=== PATIENT | male | born 1945 | race Caucasian/White ===

== ENCOUNTER 2016-12-31 17:15 | Inpatient (IN) | payer MEDICARE, OTHER ==
[~2016-12-31 17:15] MED LIST: ACETAMINOPHEN325 M2 PO; ALBUTEROL SULF8.5 GM IH; ALENDRONATE SOD70 M1 PO; ALLERGY12.5 MG/5 PO; ALLFEN400 MG PO; ALOE VESTA56 G1 TOP; ALPRAZOLAM0.5 M2 PO; AMBIEN10 MG PO; AMMONIUM LACTA140 GM TOP; AMOXICILLIN500 M1 PO; ANTI-ITCH28 GM TOP; ANUSOL PR; ASCORBIC ACID500 M2 PO; ASCORBIC ACID500 M3 PO; ASPIRIN325 M3 PO; ASPIRIN325 MG PO; ATENOLOL50 MG PO; AUGMENTIN875 MG PO; AVELOX400 MG PO; B-12500 MC1 PO; BACLOFEN10 M1 PO; BACLOFEN10 MG PO; BACTRIM DS TAB1 EAC2 PO; BENADRYL25 MG PO; BENADRYL25 MG/TA1 NG; BETADINE1 EACH TP; CALCIUM 500 +1 EA10 PO; CALCIUM 500 +1 EA11 PO; CALCIUM 500 +1 EAC5 PO; CALCIUM 500 WI1 EAC1 PO; CARBAMAZEPINE200 M5 PO; CARBAMAZEPINE200 MG PO; CARDURA8 M1 PO; CARDURA8 MG PO; CELEXA40 MG PO; CITALOPRAM HBR40 MG PO; CLOTRIM ANTIFUN15 GM TOP; CLOTRIMAZOLE15 G2 TOP; COMBIVENT INH14.7 GM IH; CORTISONE28 GM; DANTROLENE SODI PO; DIAZEPAM2 M2 PO; DOLOPHINE HCL10 MG PO; DOXAZOSIN MESYLA8 M1 PO; FERROUS SU325 ( 65 ) PO; FERROUS SULFAT325 MG PO; FINASTERIDE5 M2 PO; FINASTERIDE5 MG PO; FISH OIL 1,0001 CA PO; FISH OIL 11000 MG/CA PO; FLAGYL500 M1 PO; FOSAMAX70 MG PO; FUROSEMIDE40 MG PO; FUROSEMIDE80 M1 PO; FUROSEMIDE80 M2 PO; FUROSEMIDE80 MG PO; GABAPENTIN300 MG PO; GABAPENTIN400 M3 PO; GABAPENTIN400 MG PO; GUAIFENESIN400 MG PO; HEMORRHOIDAL RC; HYDROCHLOROTHIA25 M1 PO; HYDROCHLOROTHIA25 MG PO; HYDROCORTISON28.4 G6 TP; HYDROCORTISONE10 M1 PO; HYDROCORTISONE10 M3 PO; HYDROXYCHLOROQ200 MG PO; HYDROXYZINE HCL25 MG PO; IBUPROFEN800 M1 PO; IBUPROFEN800 MG PO; IMODIUM2 MG PO; INDERAL LA120 MG PO; IRON325 ( 65 ) PO; K-DUR10 ME1 PO; LAMISIL250 M1 PO; LASIX40 MG PO; LASIX80 M1 PO; LATANOPROST2.5 ML OP; LEVAQUIN500 MG PO; LISINOPRIL20 MG PO; LISINOPRIL40 M1 PO; LISINOPRIL40 MG PO; LOPRESSOR50 M1 PO; LORCET 10/650 T1 TAB PO; LOTRIMIN AF12 GM TP; MELOXICAM15 M1 PO; METHADONE HCL10 M1 PO; METHADONE HCL10 MG PO; METHADONE HCL5 M2 PO; METHADONE5 MG PO; METOPROLOL TAR100 M2 PO; METOPROLOL TART25 MG PO; METRONIDAZOLE500 MG PO; MILK OF MAGNESIA PO; MIRALAX17 G1 PO; MIRALAX17 GM PO; MISOPROSTOL200 MCG PO; MOMETASONE FURO30 ML; MOMETASONE FURO30 ML TP; MULTIVITAMIN1 TAB PO; MUPIROCIN15 G2 TP; NASONEX17 G1; NASONEX17 GM NS; NATURAL E PO; NEURONTIN300 M1 PO; NEURONTIN400 M1 PO; NORTRIPTYLINE H25 M1 PO; NORTRIPTYLINE H50 M1 PO; NYSTATIN15 GM TP; OCUVITE TABLET1 TAB PO; OMEGA 31 CAP PO; OMEPRAZOLE20 M2 PO; OMEPRAZOLE20 M4 PO; OMEPRAZOLE20 MG PO; OXYCODONE HCL5 M1 PO; OXYGEN; OYST CAL D TABL PO; PENICILLIN V P500 MG PO; PENTOPAK400 MG PO; PERCOCET 5/3251 TAB PO; PEROXIDE SORE236 ML PO; POLYETHYLENE G500 G2 PO; POLYETHYLENE GL17 G1 PO; POTASSIUM CHLO10 MEQ PO; POTASSIUM CHLO20 ME3 PO; PRAVACHOL40 MG PO; PRAVASTATIN SOD80 M1 PO; PREDNISONE10 M1 PO; PREDNISONE5 MG PO; PRESERVISION A1 EAC4 PO; PRINIVIL20 MG PO; PROAIR HFA8.5 GM INH; PROPRANOLOL HC120 MG PO; REFRESH LIQUIGE15 ML EACH EYE; REFRESH LIQUIGE30 ML EACH EYE; REFRESH PLUS1 EACH OP; REQUIP3 M1 PO; ROPINIROLE HCL2 MG PO; ROPINIROLE HCL3 M1 PO; SALSALATE500 MG PO; SANTYL30 G1 TP; SANTYL30 GM TP; SENNA8.6 M1 PO; SILDENAFIL20 MG PO; SILVER SULFADIA50 GM TP; SIMETHICONE80 MG PO; SIMVASTATIN80 MG PO; SPIRIVA18 MCG IH; STERAPRED10 MG/DOSE PO; SYMBICORT 160-1 PUFF INH; TEGRETOL100 MG PO; TRAMADOL HCL50 M2 PO; TRAVATAN 0.0042.5 ML OP; TRAVATAN5 ML OP; TRAZODONE HCL50 M1 PO; TRAZODONE50 MG PO; TRIAMTERENE-HCT1 CAP PO; TRIPLE ANTIBIOT15 GM TP; TYLENOL EXTRA500 M1 PO; TYLENOL325 M2 PO; TYLENOL325 MG PO; VALIUM2 MG PO; VENTOLIN HFA18 G1 INH; VITAMIN B-12500 MCG PO; VITAMIN C PO; VITAMIN C500 MG PO; VITAMIN E1000 UNI1 PO; VITAMIN E1000 UNI2 PO; XALATAN2.5 M1 EACH EYE; XALATAN2.5 ML OP; ZYRTEC10 MG PO; [UNRECOGNIZED DRUG - OTHER] PO; [UNRECOGNIZED DRUG - REMARK]
[2016-12-31] MEDS ORDERED: IODOSORB TP (17:34)
[2016-12-31] MEDS ORDERED: FERROUS SULFAT324 MG PO (17:37)
[2016-12-31] MEDS ORDERED: LASIX80 M1 PO (17:37)
[2016-12-31] MEDS ORDERED: HYDROCODON-ACE1 EA17 PO (17:39)
[2016-12-31] MEDS ORDERED: CORTIZONE-1028 G2 TP (17:40)
[2016-12-31] MEDS ORDERED: IBUPROFEN800 M1 PO (17:41)
[2016-12-31] MEDS ORDERED: NASONEX17 G1 (17:42)
[2016-12-31] MEDS ORDERED: PAMELOR50 M2 PO (17:43)
[2016-12-31] MEDS ORDERED: XALATAN2.5 M1 OP (17:46)
[2016-12-31 17:53] LABS: URINE BILIRUBIN NEGATIVE (NEG); URINE BLOOD MODERATE (NEG); URINE GLUCOSE (UA) NEGATIVE (NEG); URINE KETONE NEGATIVE (NEG); URINE LEUKOCYTE ESTERASE NEGATIVE (NEG); URINE NITRITE NEGATIVE (NEG); URINE PROTEIN MODERATE (NEG)
[2016-12-31 17:57] LABS: URINE APPEARANCE CLEAR; URINE COLOR YELLOW
[2016-12-31 18:02] LABS: URINE EPITHELIAL CELLS RARE /[HPF] (0-10); URINE MUCUS 1+; URINE WBC RARE /[HPF] (0-5)
[2016-12-31 18:19] LABS: BASO % 0.1 % (0-2); EOS % 0.1 % (0-7); HCT-HEMATOCRIT 31.8 % (36.0-53.5); HGB-HEMOGLOBIN 10.9 gm/dl (13.5-17.0); IMMATURE GRANULOCYTES ABSOLUTE 0.04 tho/cmm (0-0.03); IMMATURE GRANULOCYTES PERCENT 0.3 % (0-0.3); LYMPH % 10.7 % (20-45); LYMPH ABSOLUTE COUNT 1.3 tho/cmm (0.8-4.5); MCH (MEAN CORPUSCULAR HGB) 33.3 pg (28.0-32.0); MCHC MEAN CORPUSCULAR HGB CONC 34.3 % (32.0-36.0); MCV (MEAN CELL VOLUME) 97.2 fl (82.0-96.0); MEAN PLATELET VOLUME 10.3 cmc (9.4-12.4); MONO % 14.1 % (0-12); MONOCYTE ABSOLUTE COUNT 1.8 tho/cmm (0.0-1.2); NEUTROPHIL ABSOLUTE COUNT 9.2 tho/cmm (1.6-8.0); NEUTROPHIL-AUTOMATED 9.2 tho/cmm (1.6-8.0); NEUTROPHILS % 74.7 % (40-80); PLATELET COUNT 126 tho/cmm (150-450); RED BLOOD COUNT 3.27 mil/cmm (4.40-5.70); RED CELL DISTRIBUTION WIDTH 15.3 % (12.4-16.4); WHITE BLOOD COUNT 12.4 tho/cmm (4.0-10.0)
[2016-12-31 18:31] LABS: ALB/GLOB RATIO 0.6 (0.8-2.0); ALBUMIN 3.2 g/dl (3.5-5.0); ALKALINE PHOSPHATASE 90 U/L (33-138); ALT/SGPT 25 U/L (12-78); ANION GAP 15 mmol/L (0-20); AST/SGOT 47 U/L (10-40); BILIRUBIN,TOTAL 0.8 mg/dl (0.0-1.5); BLOOD UREA NITROGEN 46 mg/dl (6-24); CALCIUM 9.4 mg/dl (8.5-10.5); CARBON DIOXIDE-VENOUS 27 mmol/L (22-32); CHLORIDE 95 mmol/l (96-110); CREATININE 1.58 mg/dl (0.60-1.30); GLUCOSE 92 mg/dL (70-110); LIPASE 89 U/L (73-393); SODIUM 133 mmol/L (135-145); eGFR VALUE FOR BLACK 50 mL/Min
[2016-12-31 21:13] LABS: PROCALCITONIN 0.99 ng/ml (0.05-0.09)
[2017-01-01 03:39] LABS: HGB-HEMOGLOBIN 10.2 gm/dl (13.5-17.0); IMMATURE GRANULOCYTES ABSOLUTE 0.02 tho/cmm (0-0.03); IMMATURE GRANULOCYTES PERCENT 0.2 % (0-0.3); LYMPH % 4.5 % (20-45); LYMPH ABSOLUTE COUNT 0.4 tho/cmm (0.8-4.5); MCH (MEAN CORPUSCULAR HGB) 32.7 pg (28.0-32.0); MCV (MEAN CELL VOLUME) 96.2 fl (82.0-96.0); MONO % 5.6 % (0-12); MONOCYTE ABSOLUTE COUNT 0.5 tho/cmm (0.0-1.2); NEUTROPHIL ABSOLUTE COUNT 7.9 tho/cmm (1.6-8.0); NEUTROPHIL-AUTOMATED 7.9 tho/cmm (1.6-8.0); NEUTROPHILS % 89.7 % (40-80); PLATELET COUNT 120 tho/cmm (150-450); RED BLOOD COUNT 3.12 mil/cmm (4.40-5.70); WHITE BLOOD COUNT 8.8 tho/cmm (4.0-10.0)
[2017-01-01 03:46] LABS: ALB/GLOB RATIO 0.5 (0.8-2.0); ALBUMIN 2.7 g/dl (3.5-5.0); ALKALINE PHOSPHATASE 85 U/L (33-138); ALT/SGPT 24 U/L (12-78); ANION GAP 17 mmol/L (0-20); AST/SGOT 54 U/L (10-40); BILIRUBIN,TOTAL 0.7 mg/dl (0.0-1.5); BLOOD UREA NITROGEN 36 mg/dl (6-24); CALCIUM 8.4 mg/dl (8.5-10.5); CARBON DIOXIDE-VENOUS 24 mmol/L (22-32); CHLORIDE 97 mmol/l (96-110); CREATININE 1.32 mg/dl (0.60-1.30); POTASSIUM 3.6 mmol/L (3.7-5.1); SODIUM 134 mmol/L (135-145); eGFR VALUE FOR BLACK 62 mL/Min
[2017-01-01 03:51] LABS: GLUCOSE 158 mg/dL (70-110)
[2017-01-01 18:00] LABS: URINE BILIRUBIN NEGATIVE (NEG); URINE BLOOD NEGATIVE (NEG); URINE GLUCOSE (UA) NEGATIVE (NEG); URINE KETONE NEGATIVE (NEG); URINE LEUKOCYTE ESTERASE NEGATIVE (NEG); URINE NITRITE NEGATIVE (NEG); URINE PROTEIN MODERATE (NEG); URINE SPECIFIC GRAVITY 1.015 (1.003-1.030)
[2017-01-01 18:03] LABS: URINE APPEARANCE CLOUDY; URINE COLOR YELLOW
[2017-01-01 18:28] LABS: URINE EPITHELIAL CELLS RARE /[HPF] (0-10); URINE RBC 0 /[HPF] (0-5); URINE WBC 0 /[HPF] (0-5)
[2017-01-01 18:29] LABS: URINE AMORPHOUS 4+
[2017-01-02 05:32] LABS: BASO % 0.1 % (0-2); EOS % 0.1 % (0-7); HCT-HEMATOCRIT 26.6 % (36.0-53.5); IMMATURE GRANULOCYTES ABSOLUTE 0.03 tho/cmm (0-0.03); IMMATURE GRANULOCYTES PERCENT 0.3 % (0-0.3); LYMPH % 13.7 % (20-45); LYMPH ABSOLUTE COUNT 1.2 tho/cmm (0.8-4.5); MCH (MEAN CORPUSCULAR HGB) 32.7 pg (28.0-32.0); MCHC MEAN CORPUSCULAR HGB CONC 33.8 % (32.0-36.0); MCV (MEAN CELL VOLUME) 96.7 fl (82.0-96.0); MEAN PLATELET VOLUME 9.9 cmc (9.4-12.4); MONO % 13.3 % (0-12); MONOCYTE ABSOLUTE COUNT 1.2 tho/cmm (0.0-1.2); NEUTROPHIL ABSOLUTE COUNT 6.4 tho/cmm (1.6-8.0); NEUTROPHIL-AUTOMATED 6.4 tho/cmm (1.6-8.0); NEUTROPHILS % 72.5 % (40-80); PLATELET COUNT 129 tho/cmm (150-450); RED BLOOD COUNT 2.75 mil/cmm (4.40-5.70); RED CELL DISTRIBUTION WIDTH 14.7 % (12.4-16.4); WHITE BLOOD COUNT 8.9 tho/cmm (4.0-10.0)
[2017-01-02 05:42] LABS: ANION GAP 12 mmol/L (0-20); BLOOD UREA NITROGEN 30 mg/dl (6-24); CALCIUM 7.5 mg/dl (8.5-10.5); CARBON DIOXIDE-VENOUS 28 mmol/L (22-32); CHLORIDE 95 mmol/l (96-110); GLUCOSE 112 mg/dL (70-110); POTASSIUM 3.2 mmol/L (3.7-5.1); SODIUM 132 mmol/L (135-145); eGFR VALUE FOR BLACK 69 mL/Min
[2017-01-03 19:10] LABS: ABG CO2 ARTERIAL 30 mmol/L (21-27); ARTERIAL BLD GAS O2 SATURATION 88 % (95-98); ARTERIAL BLOOD GAS PCO2 46 mmHg (32-45); ARTERIAL PO2 57 mmHg (70-100); BICARBONATE 29 mmol/L (21-28); BLOOD GAS BASE EXCESS 4 mM/L (-/+3); PH 7.41 Units (7.35-7.45)
[2017-01-03 23:46] LABS: BLOOD UREA NITROGEN 22 mg/dl (6-24); CALCIUM 7.2 mg/dl (8.5-10.5); CARBON DIOXIDE-VENOUS 31 mmol/L (22-32); CHLORIDE 93 mmol/l (96-110); CREATININE 1.17 mg/dl (0.60-1.30); GLUCOSE 126 mg/dL (70-110); SODIUM 132 mmol/L (135-145); eGFR VALUE FOR BLACK 71 mL/Min
[2017-01-03 23:48] LABS: ANION GAP 11 mmol/L (0-20)
[2017-01-04 04:59] LABS: BASO % 0.2 % (0-2); EOS % 1.3 % (0-7); EOSINOPHIL ABSOLUTE COUNT 0.1 tho/cmm (0.0-0.7); HCT-HEMATOCRIT 28.7 % (36.0-53.5); HGB-HEMOGLOBIN 9.5 gm/dl (13.5-17.0); IMMATURE GRANULOCYTES ABSOLUTE 0.03 tho/cmm (0-0.03); IMMATURE GRANULOCYTES PERCENT 0.5 % (0-0.3); LYMPH % 12.3 % (20-45); LYMPH ABSOLUTE COUNT 0.7 tho/cmm (0.8-4.5); MCHC MEAN CORPUSCULAR HGB CONC 33.1 % (32.0-36.0); MCV (MEAN CELL VOLUME) 96.6 fl (82.0-96.0); MEAN PLATELET VOLUME 9.4 cmc (9.4-12.4); MONOCYTE ABSOLUTE COUNT 1.2 tho/cmm (0.0-1.2); NEUTROPHILS % 65.7 % (40-80); PLATELET COUNT 126 tho/cmm (150-450); RED BLOOD COUNT 2.97 mil/cmm (4.40-5.70); RED CELL DISTRIBUTION WIDTH 14.6 % (12.4-16.4)
[2017-01-04 05:20] LABS: ALB/GLOB RATIO 0.4 (0.8-2.0); ALBUMIN 2.2 g/dl (3.5-5.0); ALKALINE PHOSPHATASE 70 U/L (33-138); ALT/SGPT 19 U/L (12-78); ANION GAP 16 mmol/L (0-20); AST/SGOT 37 U/L (10-40); BILIRUBIN,TOTAL 0.7 mg/dl (0.0-1.5); BLOOD UREA NITROGEN 19 mg/dl (6-24); CALCIUM 6.8 mg/dl (8.5-10.5); CARBON DIOXIDE-VENOUS 28 mmol/L (22-32); CHLORIDE 89 mmol/l (96-110); CREATININE 1.04 mg/dl (0.60-1.30); GLUCOSE 171 mg/dL (70-110); POTASSIUM 3.2 mmol/L (3.7-5.1); SODIUM 130 mmol/L (135-145); eGFR VALUE FOR BLACK 82 mL/Min
[2017-01-05 03:52] LABS: BASO % 0.2 % (0-2); EOS % 1.3 % (0-7); EOSINOPHIL ABSOLUTE COUNT 0.1 tho/cmm (0.0-0.7); HCT-HEMATOCRIT 27.5 % (36.0-53.5); HGB-HEMOGLOBIN 9.1 gm/dl (13.5-17.0); IMMATURE GRANULOCYTES ABSOLUTE 0.05 tho/cmm (0-0.03); IMMATURE GRANULOCYTES PERCENT 0.8 % (0-0.3); LYMPH % 16.4 % (20-45); LYMPH ABSOLUTE COUNT 1.1 tho/cmm (0.8-4.5); MCH (MEAN CORPUSCULAR HGB) 32.4 pg (28.0-32.0); MCHC MEAN CORPUSCULAR HGB CONC 33.1 % (32.0-36.0); MCV (MEAN CELL VOLUME) 97.9 fl (82.0-96.0); MEAN PLATELET VOLUME 9.6 cmc (9.4-12.4); MONO % 17.1 % (0-12); MONOCYTE ABSOLUTE COUNT 1.1 tho/cmm (0.0-1.2); NEUTROPHIL ABSOLUTE COUNT 4.1 tho/cmm (1.6-8.0); NEUTROPHIL-AUTOMATED 4.1 tho/cmm (1.6-8.0); NEUTROPHILS % 64.2 % (40-80); PLATELET COUNT 119 tho/cmm (150-450); RED BLOOD COUNT 2.81 mil/cmm (4.40-5.70); RED CELL DISTRIBUTION WIDTH 14.5 % (12.4-16.4); WHITE BLOOD COUNT 6.4 tho/cmm (4.0-10.0)
[2017-01-05 04:06] LABS: ALB/GLOB RATIO 0.4 (0.8-2.0); ALBUMIN 2.2 g/dl (3.5-5.0); ALKALINE PHOSPHATASE 72 U/L (33-138); ALT/SGPT 22 U/L (12-78); ANION GAP 9 mmol/L (0-20); AST/SGOT 37 U/L (10-40); BILIRUBIN,TOTAL 0.5 mg/dl (0.0-1.5); BLOOD UREA NITROGEN 23 mg/dl (6-24); CALCIUM 7.2 mg/dl (8.5-10.5); CARBON DIOXIDE-VENOUS 32 mmol/L (22-32); CHLORIDE 96 mmol/l (96-110); CREATININE 1.03 mg/dl (0.60-1.30); GLUCOSE 92 mg/dL (70-110); POTASSIUM 3.4 mmol/L (3.7-5.1); SODIUM 134 mmol/L (135-145); eGFR VALUE FOR BLACK 83 mL/Min
[2017-01-05 20:10] LABS: URINE BILIRUBIN NEGATIVE (NEG); URINE BLOOD SMALL (NEG); URINE GLUCOSE (UA) NEGATIVE (NEG); URINE KETONE NEGATIVE (NEG); URINE LEUKOCYTE ESTERASE NEGATIVE (NEG); URINE NITRITE NEGATIVE (NEG); URINE PROTEIN SMALL (NEG); URINE SPECIFIC GRAVITY 1.015 (1.003-1.030)
[2017-01-05 20:16] LABS: URINE APPEARANCE CLEAR; URINE COLOR YELLOW
[2017-01-05 20:18] LABS: URINE AMORPHOUS 1+; URINE EPITHELIAL CELLS 0 /[HPF] (0-10); URINE WBC 0-1 /[HPF] (0-5)
[2017-01-06 04:42] LABS: ANION GAP 12 mmol/L (0-20); BLOOD UREA NITROGEN 23 mg/dl (6-24); CARBON DIOXIDE-VENOUS 30 mmol/L (22-32); CHLORIDE 96 mmol/l (96-110); CREATININE 0.94 mg/dl (0.60-1.30); GLUCOSE 112 mg/dL (70-110); POTASSIUM 3.5 mmol/L (3.7-5.1); SODIUM 134 mmol/L (135-145); eGFR VALUE FOR BLACK >90 mL/Min
[2017-01-08 07:16] LABS: BASO % 0.3 % (0-2); EOS % 1.4 % (0-7); EOSINOPHIL ABSOLUTE COUNT 0.1 tho/cmm (0.0-0.7); HCT-HEMATOCRIT 28.3 % (36.0-53.5); HGB-HEMOGLOBIN 9.4 gm/dl (13.5-17.0); IMMATURE GRANULOCYTES ABSOLUTE 0.08 tho/cmm (0-0.03); IMMATURE GRANULOCYTES PERCENT 1.4 % (0-0.3); LYMPH % 14.4 % (20-45); LYMPH ABSOLUTE COUNT 0.8 tho/cmm (0.8-4.5); MCH (MEAN CORPUSCULAR HGB) 32.2 pg (28.0-32.0); MCHC MEAN CORPUSCULAR HGB CONC 33.2 % (32.0-36.0); MCV (MEAN CELL VOLUME) 96.9 fl (82.0-96.0); MEAN PLATELET VOLUME 9.5 cmc (9.4-12.4); MONO % 12.7 % (0-12); MONOCYTE ABSOLUTE COUNT 0.7 tho/cmm (0.0-1.2); NEUTROPHIL ABSOLUTE COUNT 4.1 tho/cmm (1.6-8.0); NEUTROPHIL-AUTOMATED 4.1 tho/cmm (1.6-8.0); NEUTROPHILS % 69.8 % (40-80); PLATELET COUNT 113 tho/cmm (150-450); RED BLOOD COUNT 2.92 mil/cmm (4.40-5.70); RED CELL DISTRIBUTION WIDTH 14.4 % (12.4-16.4); WHITE BLOOD COUNT 5.8 tho/cmm (4.0-10.0)
[2017-01-08 07:28] LABS: ALBUMIN 2.3 g/dl (3.5-5.0); ANION GAP 11 mmol/L (0-20); BLOOD UREA NITROGEN 20 mg/dl (6-24); C-REACTIVE PROTEIN 14.7 mg/dl (0-0.9); CALCIUM 8.6 mg/dl (8.5-10.5); CARBON DIOXIDE-VENOUS 31 mmol/L (22-32); CHLORIDE 96 mmol/l (96-110); CREATININE 0.87 mg/dl (0.60-1.30); GLUCOSE 94 mg/dL (70-110); POTASSIUM 3.2 mmol/L (3.7-5.1); SODIUM 135 mmol/L (135-145); eGFR VALUE FOR BLACK >90 mL/Min
[2017-01-10 05:21] LABS: BASO % 0.2 % (0-2); EOS % 1.2 % (0-7); EOSINOPHIL ABSOLUTE COUNT 0.1 tho/cmm (0.0-0.7); HCT-HEMATOCRIT 29.5 % (36.0-53.5); HGB-HEMOGLOBIN 9.4 gm/dl (13.5-17.0); IMMATURE GRANULOCYTES ABSOLUTE 0.09 tho/cmm (0-0.03); IMMATURE GRANULOCYTES PERCENT 1.5 % (0-0.3); LYMPH ABSOLUTE COUNT 0.9 tho/cmm (0.8-4.5); MCHC MEAN CORPUSCULAR HGB CONC 31.9 % (32.0-36.0); MCV (MEAN CELL VOLUME) 100.3 fl (82.0-96.0); MEAN PLATELET VOLUME 9.4 cmc (9.4-12.4); MONO % 12.1 % (0-12); MONOCYTE ABSOLUTE COUNT 0.7 tho/cmm (0.0-1.2); NEUTROPHIL ABSOLUTE COUNT 4.1 tho/cmm (1.6-8.0); NEUTROPHIL-AUTOMATED 4.1 tho/cmm (1.6-8.0); PLATELET COUNT 116 tho/cmm (150-450); RED BLOOD COUNT 2.94 mil/cmm (4.40-5.70); RED CELL DISTRIBUTION WIDTH 14.8 % (12.4-16.4); WHITE BLOOD COUNT 5.9 tho/cmm (4.0-10.0)
[2017-01-10 05:50] LABS: ANION GAP 8 mmol/L (0-20); BLOOD UREA NITROGEN 26 mg/dl (6-24); CALCIUM 8.5 mg/dl (8.5-10.5); CARBON DIOXIDE-VENOUS 35 mmol/L (22-32); CHLORIDE 98 mmol/l (96-110); CREATININE 1.09 mg/dl (0.60-1.30); GLUCOSE 102 mg/dL (70-110); SODIUM 137 mmol/L (135-145); eGFR VALUE FOR BLACK 78 mL/Min
[2017-01-13 06:50] LABS: TSH-THYROID STIMULATING HORM. 4.93 uIU/ml (0.40-3.80)
[2017-01-14 03:40] LABS: ALB/GLOB RATIO 0.4 (0.8-2.0); ALBUMIN 2.3 g/dl (3.5-5.0); ALKALINE PHOSPHATASE 99 U/L (33-138); ALT/SGPT 18 U/L (12-78); ANION GAP 12 mmol/L (0-20); AST/SGOT 27 U/L (10-40); BILIRUBIN,TOTAL 0.4 mg/dl (0.0-1.5); BLOOD UREA NITROGEN 20 mg/dl (6-24); C-REACTIVE PROTEIN 8.8 mg/dl (0-0.9); CALCIUM 8.4 mg/dl (8.5-10.5); CARBON DIOXIDE-VENOUS 34 mmol/L (22-32); CHLORIDE 95 mmol/l (96-110); CREATININE 1.06 mg/dl (0.60-1.30); GLUCOSE 99 mg/dL (70-110); POTASSIUM 3.5 mmol/L (3.7-5.1); SODIUM 137 mmol/L (135-145); eGFR VALUE FOR BLACK 80 mL/Min
[2017-01-14 10:16] LABS: BASO % 0.1 % (0-2); EOS % 0.8 % (0-7); EOSINOPHIL ABSOLUTE COUNT 0.1 tho/cmm (0.0-0.7); HGB-HEMOGLOBIN 9.6 gm/dl (13.5-17.0); IMMATURE GRANULOCYTES ABSOLUTE 0.14 tho/cmm (0-0.03); IMMATURE GRANULOCYTES PERCENT 1.8 % (0-0.3); LYMPH % 12.3 % (20-45); MCH (MEAN CORPUSCULAR HGB) 31.9 pg (28.0-32.0); MCV (MEAN CELL VOLUME) 99.7 fl (82.0-96.0); MEAN PLATELET VOLUME 9.3 cmc (9.4-12.4); MONO % 12.7 % (0-12); NEUTROPHIL ABSOLUTE COUNT 5.8 tho/cmm (1.6-8.0); NEUTROPHIL-AUTOMATED 5.8 tho/cmm (1.6-8.0); NEUTROPHILS % 72.3 % (40-80); PLATELET COUNT 121 tho/cmm (150-450); RED BLOOD COUNT 3.01 mil/cmm (4.40-5.70); RED CELL DISTRIBUTION WIDTH 15.2 % (12.4-16.4)
[2017-01-15 05:40] LABS: BASO % 0.2 % (0-2); EOS % 0.9 % (0-7); EOSINOPHIL ABSOLUTE COUNT 0.1 tho/cmm (0.0-0.7); HCT-HEMATOCRIT 30.6 % (36.0-53.5); HGB-HEMOGLOBIN 9.7 gm/dl (13.5-17.0); IMMATURE GRANULOCYTES ABSOLUTE 0.08 tho/cmm (0-0.03); IMMATURE GRANULOCYTES PERCENT 1.4 % (0-0.3); LYMPH % 16.4 % (20-45); MCH (MEAN CORPUSCULAR HGB) 31.6 pg (28.0-32.0); MCHC MEAN CORPUSCULAR HGB CONC 31.7 % (32.0-36.0); MCV (MEAN CELL VOLUME) 99.7 fl (82.0-96.0); MEAN PLATELET VOLUME 9.2 cmc (9.4-12.4); MONOCYTE ABSOLUTE COUNT 0.7 tho/cmm (0.0-1.2); NEUTROPHILS % 69.1 % (40-80); PLATELET COUNT 110 tho/cmm (150-450); RED BLOOD COUNT 3.07 mil/cmm (4.40-5.70); RED CELL DISTRIBUTION WIDTH 15.4 % (12.4-16.4); WHITE BLOOD COUNT 5.8 tho/cmm (4.0-10.0)
[2017-01-23] MEDS ORDERED: AMIODARONE HCL200 M1 PO ×2 (12:09→12:19)
[2017-01-23] MEDS ORDERED: DILTIAZEM 24HR180 M4 PO (12:16)
[2017-01-23] MEDS ORDERED: DANTRIUM PO (12:18)
[2017-01-23] MEDS ORDERED: PRESERVISION A1 EAC5 PO (12:20)
[2017-01-23] MEDS ORDERED: NASONEX17 G1 (12:21)
[2017-01-23] MEDS ORDERED: SYMBICORT 160-1 PUFF INH (12:21)
[2017-01-23] MEDS ORDERED: CARBAMAZEPINE100 M3 PO (12:22)
[2017-01-23] MEDS ORDERED: XARELTO20 M1 PO (12:22)
[2017-01-23] MEDS ORDERED: CARDIZEM CD180 M1 PO (12:23)
[2017-01-23] MEDS ORDERED: NEURONTIN600 M1 PO (12:23)
[2017-01-23] MEDS ORDERED: LAMISIL250 M1 PO (12:23)
[2017-01-23] MEDS ORDERED: ALDACTONE25 M1 PO (12:24)
[2017-01-23] MEDS ORDERED: POTASSIUM CHLO20 ME3 PO (12:24)
[2017-01-23] MEDS ORDERED: VITAMIN E400 UNI4 PO (12:24)
[2017-01-23] MEDS ORDERED: POLYETHYLENE G255 G1 PO (12:24)
[2017-01-23] MEDS ORDERED: VITAMIN C500 M3 PO (12:24)
[2017-01-23] MEDS ORDERED: FEOSOL325 M1 PO (12:25)
[2017-01-23] MEDS ORDERED: LASIX80 M1 PO (12:25)
[2017-01-23] MEDS ORDERED: PROSCAR5 M1 PO (12:25)
[2017-01-23] MEDS ORDERED: REQUIP2 M1 PO (12:37)
[2017-01-23] MEDS ORDERED: LOPRESSOR100 M1 PO (12:37)
[2017-01-23] MEDS ORDERED: OMEPRAZOLE20 M3 PO (12:38)
[2017-01-23] MEDS ORDERED: CORTEF20 M1 PO (12:38)
[2017-01-23] MEDS ORDERED: IBUPROFEN800 M1 PO (12:38)
[2017-01-23] MEDS ORDERED: PRAVACHOL40 M1 PO (12:39)
[2017-01-23] MEDS ORDERED: CARDURA8 M1 PO (12:41)
[2017-01-23] MEDS ORDERED: PAMELOR25 M1 PO (12:41)
[2017-01-23] MEDS ORDERED: TRAZODONE HCL150 M1 PO (12:42)
[2017-01-23] MEDS ORDERED: XALATAN2.5 M1 EACH EYE (12:43)
[2017-01-23] MEDS ORDERED: METHADONE HCL5 M2 PO (12:44)
[2017-01-23] MEDS ORDERED: OYSTER SHELL 51 EAC2 PO (12:45)
[2017-01-23] MEDS ORDERED: HYDROCODON-ACE1 EA17 PO (12:46)
[2017-01-23] MEDS ORDERED: MAPAP325 M2 PO (12:46)
[2017-02-27] MEDS ORDERED: LASIX40 M1 PO (10:59)
[2017-04-01] MEDS ORDERED: TEGRETOL200 M1 PO (10:25)
[2017-04-01] MEDS ORDERED: HYDROXYZINE HCL25 M1 PO (10:25)
[2017-04-01] MEDS ORDERED: DANTRIUM PO (10:26)
[2017-04-01] MEDS ORDERED: LOPRESSOR100 M1 PO (10:26)
[2017-04-01] MEDS ORDERED: MIRALAX17 G2 PO (10:26)
[2017-04-01] MEDS ORDERED: OS-CAL 500+D31 EAC1 PO (10:27)
[2017-04-01] MEDS ORDERED: NASONEX17 G1 (10:27)
[2017-04-01] MEDS ORDERED: NEURONTIN400 M1 PO (10:27)
[2017-04-01] MEDS ORDERED: METHADONE HCL10 M1 PO (10:27)
[2017-04-01] MEDS ORDERED: LASIX80 M1 PO (10:28)
[2017-04-01] MEDS ORDERED: AMIODARONE HCL200 M1 PO (10:28)
[2017-04-01] MEDS ORDERED: CARDURA8 M1 PO (10:28)
[2017-04-01] MEDS ORDERED: FEOSOL325 M1 PO (10:29)
[2017-04-01] MEDS ORDERED: VITAMIN E400 UNI4 PO (10:29)
[2017-04-01] MEDS ORDERED: ALDACTONE25 M1 PO (10:29)
[2017-04-01] MEDS ORDERED: DILTIAZEM 24HR180 M4 PO (10:29)
[2017-04-01] MEDS ORDERED: LAMISIL250 M1 PO (10:29)
[2017-04-01] MEDS ORDERED: XARELTO20 M1 PO (10:30)
[2017-04-01] MEDS ORDERED: COMPLETE MULTI1 EAC1 PO (10:30)
[2017-04-01] MEDS ORDERED: PRAVACHOL40 M1 PO (10:30)
[2017-04-01] MEDS ORDERED: PROSCAR5 M1 PO (10:30)
[2017-04-01] MEDS ORDERED: TRAZODONE HCL100 M1 PO (10:30)
[2017-04-01] MEDS ORDERED: VITAMIN C500 M3 PO (10:30)
[2017-04-01] MEDS ORDERED: NORCO 7.5-3251 EACH PO (10:31)
[2017-04-01] MEDS ORDERED: XALATAN2.5 M1 OP (10:31)
[2017-04-01] MEDS ORDERED: REQUIP2 M1 PO (10:31)
[2017-04-01] MEDS ORDERED: OMEPRAZOLE20 M3 PO (10:31)
[2017-04-01] MEDS ORDERED: SYMBICORT 160-1 PUFF INH (10:32)
[2017-04-01] MEDS ORDERED: MAJOR-PREP HEMO57 G1 TOP (10:32)
[2017-04-01] MEDS ORDERED: ULTRAM50 M1 PO (10:32)
[2017-04-01] MEDS ORDERED: DULERA 200 MCG/13 G1 INH (10:32)
[2017-04-01] MEDS ORDERED: HYDROCORTISON28.411 TOP (10:33)
[2017-04-01] MEDS ORDERED: PROAIR HFA8.5 GM INH (10:33)
[2017-04-01] MEDS ORDERED: MONISTAT 744 GM TOP (10:33)
[2017-04-01] MEDS ORDERED: IPRAT-ALBUT 0.5-3 ML NEB (10:34)
[2017-04-05] MEDS ORDERED: CORTEF10 M1 PO (13:31)
[2017-04-05] MEDS ORDERED: BACTRIM DS TAB1 EAC2 PO (13:32)
[2017-04-05] MEDS ORDERED: SULFAMYLON60 GM TOP (13:34)
[2017-04-05] MEDS ORDERED: SORE THROAT LO1 EAC3 MM (13:44)
[2017-04-05] MEDS ORDERED: MILK OF MAGNESIA PO (13:45)
[2017-04-05] MEDS ORDERED: CITRATE OF MAG300 M1 PO (13:45)
[2017-05-06] MEDS ORDERED: HYDROCODON-ACE1 EA16 PO (11:38)
[2017-05-06] MEDS ORDERED: METOLAZONE2.5 M1 PO (11:41)
[2017-05-06] MEDS ORDERED: VITAMIN E400 UNI7 PO (11:43)
[2017-05-06] MEDS ORDERED: LASIX80 M1 PO (11:45)
[2017-05-06] MEDS ORDERED: POTASSIUM CHLO20 ME3 PO (11:48)
[2017-05-06] MEDS ORDERED: PENTOXIFYLLINE400 M2 PO (11:57)
[2017-05-06] MEDS ORDERED: PRINIVIL5 M1 PO (12:10)
[2017-05-20] MEDS ORDERED: VITAMIN E400 UNI5 PO (11:23)
== END 2017-01-15 12:55 | DRG 264 ==
LOC: EDMED 17:15 → EMR2 19:54 → PCUA 21:10 → 5EB 01-06 17:54 → ORW 01-09 08:09 → BURN 01-09 08:30
PROVIDERS: Emergency Medicine; Internal Medicine; Internal Medicine Infectious Disease; Nurse Practitioner; Psychiatry & Neurology Neurology; ADMIT Hospitalist
PROC: 05H533Z Insertion of Infusion Device into Right Subclavian Vein, Percutaneous Approach (ICD-10-PCS; principal; 2017-01-01)
PROC: 0JBQ0ZZ Excision of Right Foot Subcutaneous Tissue and Fascia, Open Approach (ICD-10-PCS; 2017-01-09)
PROC: 0HX8XZZ Transfer Buttock Skin, External Approach (ICD-10-PCS; 2017-01-09)
PROC: 0JB90ZZ Excision of Buttock Subcutaneous Tissue and Fascia, Open Approach (ICD-10-PCS; 2017-01-09)
DX: I48.2 Chronic atrial fibrillation (principal); N17.9 Acute kidney failure, unspecified; R78.81 Bacteremia; E27.40 Unspecified adrenocortical insufficiency; T21.35XA Burn of third degree of buttock, initial encounter; L03.317 Cellulitis of buttock; I50.32 Chronic diastolic (congestive) heart failure; I11.0 Hypertensive heart disease with heart failure; B96.5 Pseudomonas (aeruginosa) (mallei) (pseudomallei) as the cause of diseases classified elsewhere; E87.1 Hypo-osmolality and hyponatremia; M79.672 Pain in left foot; G25.3 Myoclonus; Z89.412 Acquired absence of left great toe; E78.5 Hyperlipidemia, unspecified; H35.30 Unspecified macular degeneration; G47.33 Obstructive sleep apnea (adult) (pediatric); M19.90 Unspecified osteoarthritis, unspecified site; M06.9 Rheumatoid arthritis, unspecified; N40.0 Benign prostatic hyperplasia without lower urinary tract symptoms; J44.9 Chronic obstructive pulmonary disease, unspecified; H40.9 Unspecified glaucoma; F17.210 Nicotine dependence, cigarettes, uncomplicated; D64.9 Anemia, unspecified; D69.6 Thrombocytopenia, unspecified; Z79.52 Long term (current) use of systemic steroids; R10.9 Unspecified abdominal pain; Z99.81 Dependence on supplemental oxygen; I73.9 Peripheral vascular disease, unspecified; Z79.01 Long term (current) use of anticoagulants; S91.104A Unspecified open wound of right lesser toe(s) without damage to nail, initial encounter; I73.00 Raynaud's syndrome without gangrene; I27.2 Other secondary pulmonary hypertension; Z96.641 Presence of right artificial hip joint; Z96.651 Presence of right artificial knee joint; K42.9 Umbilical hernia without obstruction or gangrene; T42.6X5A Adverse effect of other antiepileptic and sedative-hypnotic drugs, initial encounter; G25.1 Drug-induced tremor; Z86.14 Personal history of Methicillin resistant Staphylococcus aureus infection; Z53.20 Procedure and treatment not carried out because of patient's decision for unspecified reasons; I07.1 Rheumatic tricuspid insufficiency; E87.6 Hypokalemia; Z53.8 Procedure and treatment not carried out for other reasons; R07.9 Chest pain, unspecified; R26.81 Unsteadiness on feet; R00.0 Tachycardia, unspecified
CPT/HCPCS: C1751; J0171; J0282; J1160; J1170; J1650; J2270; J2543; J2930; J2997; J3370; J7030; J7050; Q9967

== ENCOUNTER 2017-02-15 15:18 | Inpatient (IN) | payer MEDICARE, OTHER ==
[~2017-02-15 15:18] MED LIST changes: +ALDACTONE25 M1 PO; +AMIODARONE HCL200 M1 PO; +CARBAMAZEPINE100 M3 PO; +CARDIZEM CD180 M1 PO; +CORTEF20 M1 PO; +CORTIZONE-1028 G2 TP; +DANTRIUM PO; +DILTIAZEM 24HR180 M4 PO; +FEOSOL325 M1 PO; +FERROUS SULFAT324 MG PO; +HYDROCODON-ACE1 EA17 PO; +IODOSORB TP; +LOPRESSOR100 M1 PO; +MAPAP325 M2 PO; +NEURONTIN600 M1 PO; +OMEPRAZOLE20 M3 PO; +OYSTER SHELL 51 EAC2 PO; +PAMELOR25 M1 PO; +PAMELOR50 M2 PO; +POLYETHYLENE G255 G1 PO; +PRAVACHOL40 M1 PO; +PRESERVISION A1 EAC5 PO; +PROSCAR5 M1 PO; +REQUIP2 M1 PO; +TRAZODONE HCL150 M1 PO; +VITAMIN C500 M3 PO; +VITAMIN E400 UNI4 PO; +XALATAN2.5 M1 OP; +XARELTO20 M1 PO
[2017-02-15 15:46] LABS: BASO % 0.1 % (0-2); EOS % 0.3 % (0-7); HCT-HEMATOCRIT 27.9 % (36.0-53.5); HGB-HEMOGLOBIN 8.6 gm/dl (13.5-17.0); IMMATURE GRANULOCYTES PERCENT 0.8 % (0-0.3); LYMPH % 5.7 % (20-45); LYMPH ABSOLUTE COUNT 0.7 tho/cmm (0.8-4.5); MCH (MEAN CORPUSCULAR HGB) 31.7 pg (28.0-32.0); MCHC MEAN CORPUSCULAR HGB CONC 30.8 % (32.0-36.0); MEAN PLATELET VOLUME 10.3 cmc (9.4-12.4); MONO % 15.6 % (0-12); MONOCYTE ABSOLUTE COUNT 1.9 tho/cmm (0.0-1.2); NEUTROPHIL ABSOLUTE COUNT 9.6 tho/cmm (1.6-8.0); NEUTROPHIL-AUTOMATED 9.6 tho/cmm (1.6-8.0); NEUTROPHILS % 77.5 % (40-80); PLATELET COUNT 134 tho/cmm (150-450); RED BLOOD COUNT 2.71 mil/cmm (4.40-5.70); RED CELL DISTRIBUTION WIDTH 18.1 % (12.4-16.4); WHITE BLOOD COUNT 12.4 tho/cmm (4.0-10.0)
[2017-02-15 15:52] LABS: INR 1.1 INR (0.9-1.1); PROTHROMBIN TIME 13.3 SECONDS (9.0-13.6)
[2017-02-15 16:03] LABS: ALB/GLOB RATIO 0.5 (0.8-2.0); ALBUMIN 2.7 g/dl (3.5-5.0); ALKALINE PHOSPHATASE 112 U/L (33-138); ALT/SGPT 34 U/L (12-78); ANION GAP 14 mmol/L (0-20); AST/SGOT 52 U/L (10-40); BILIRUBIN,TOTAL 0.4 mg/dl (0.0-1.5); BLOOD UREA NITROGEN 64 mg/dl (6-24); CALCIUM 8.4 mg/dl (8.5-10.5); CARBON DIOXIDE-VENOUS 28 mmol/L (22-32); CHLORIDE 94 mmol/l (96-110); CREATININE 2.19 mg/dl (0.60-1.30); GLUCOSE 117 mg/dL (70-110); SODIUM 132 mmol/L (135-145); eGFR VALUE FOR BLACK 33 mL/Min
[2017-02-15 16:31] LABS: PROCALCITONIN 0.21 ng/ml (0.05-0.09)
[2017-02-15] MEDS ORDERED: HYDROCODON-ACE1 EA17 PO (16:50)
[2017-02-15] MEDS ORDERED: HYDROXYZINE HCL25 M1 PO (16:52)
[2017-02-15] MEDS ORDERED: IPRAT-ALBUT 0.5-3 ML INH (16:53)
[2017-02-15] MEDS ORDERED: HEMORRHOIDAL CR51 GM PR (16:54)
[2017-02-15] MEDS ORDERED: IBUPROFEN800 M1 PO (16:56)
[2017-02-15] MEDS ORDERED: LATANOPROST2.5 M1 OP (16:56)
[2017-02-15] MEDS ORDERED: LASIX40 M1 PO (17:00)
[2017-02-15] MEDS ORDERED: PRESERVISION A1 EAC4 PO (17:02)
[2017-02-15] MEDS ORDERED: PROAIR HFA8.5 GM INH (17:08)
[2017-02-15 20:11] LABS: URINE APPEARANCE CLEAR; URINE BILIRUBIN NEGATIVE (NEG); URINE BLOOD NEGATIVE (NEG); URINE COLOR YELLOW; URINE GLUCOSE (UA) NEGATIVE (NEG); URINE KETONE NEGATIVE (NEG); URINE LEUKOCYTE ESTERASE NEGATIVE (NEG); URINE NITRITE NEGATIVE (NEG); URINE PROTEIN MODERATE (NEG); URINE SPECIFIC GRAVITY 1.015 (1.003-1.030)
[2017-02-15 20:18] LABS: URINE EPITHELIAL CELLS 0-2 /[HPF] (0-10); URINE MUCUS 2+; URINE RBC 0-1 /[HPF] (0-5)
[2017-02-15 22:31] LABS: C-REACTIVE PROTEIN 3.2 mg/dl (0-0.9)
[2017-02-15 22:34] LABS: TSH-THYROID STIMULATING HORM. 5.85 uIU/ml (0.40-3.80)
[2017-02-16 03:44] LABS: URINE BILIRUBIN NEGATIVE (NEG); URINE BLOOD NEGATIVE (NEG); URINE GLUCOSE (UA) NEGATIVE (NEG); URINE KETONE NEGATIVE (NEG); URINE LEUKOCYTE ESTERASE NEGATIVE (NEG); URINE NITRITE NEGATIVE (NEG); URINE PROTEIN MODERATE (NEG); URINE SPECIFIC GRAVITY 1.015 (1.003-1.030)
[2017-02-16 03:47] LABS: URINE APPEARANCE CLEAR; URINE COLOR YELLOW
[2017-02-16 04:13] LABS: URINE RBC 0 /[HPF] (0-5)
[2017-02-16 06:55] LABS: BASO % 0.1 % (0-2); EOS % 0.2 % (0-7); HCT-HEMATOCRIT 26.6 % (36.0-53.5); HGB-HEMOGLOBIN 8.2 gm/dl (13.5-17.0); IMMATURE GRANULOCYTES ABSOLUTE 0.05 tho/cmm (0-0.03); IMMATURE GRANULOCYTES PERCENT 0.6 % (0-0.3); LYMPH % 7.9 % (20-45); LYMPH ABSOLUTE COUNT 0.7 tho/cmm (0.8-4.5); MCH (MEAN CORPUSCULAR HGB) 31.4 pg (28.0-32.0); MCHC MEAN CORPUSCULAR HGB CONC 30.8 % (32.0-36.0); MCV (MEAN CELL VOLUME) 101.9 fl (82.0-96.0); MEAN PLATELET VOLUME 9.8 cmc (9.4-12.4); MONOCYTE ABSOLUTE COUNT 1.3 tho/cmm (0.0-1.2); NEUTROPHIL ABSOLUTE COUNT 6.6 tho/cmm (1.6-8.0); NEUTROPHIL-AUTOMATED 6.6 tho/cmm (1.6-8.0); NEUTROPHILS % 76.2 % (40-80); PLATELET COUNT 127 tho/cmm (150-450); RED BLOOD COUNT 2.61 mil/cmm (4.40-5.70); RED CELL DISTRIBUTION WIDTH 18.1 % (12.4-16.4); WHITE BLOOD COUNT 8.6 tho/cmm (4.0-10.0)
[2017-02-16 07:07] LABS: ANION GAP 12 mmol/L (0-20); BLOOD UREA NITROGEN 61 mg/dl (6-24); CALCIUM 8.1 mg/dl (8.5-10.5); CARBON DIOXIDE-VENOUS 29 mmol/L (22-32); CHLORIDE 100 mmol/l (96-110); CREATININE 1.97 mg/dl (0.60-1.30); GLUCOSE 102 mg/dL (70-110); MAGNESIUM 2.6 mg/dl (1.8-2.6); POTASSIUM 4.4 mmol/L (3.7-5.1); SODIUM 137 mmol/L (135-145); eGFR VALUE FOR BLACK 38 mL/Min
[2017-02-17 05:48] LABS: BASO % 0.1 % (0-2); EOS % 1.2 % (0-7); EOSINOPHIL ABSOLUTE COUNT 0.1 tho/cmm (0.0-0.7); HGB-HEMOGLOBIN 8.1 gm/dl (13.5-17.0); IMMATURE GRANULOCYTES ABSOLUTE 0.06 tho/cmm (0-0.03); IMMATURE GRANULOCYTES PERCENT 0.7 % (0-0.3); LYMPH % 9.5 % (20-45); LYMPH ABSOLUTE COUNT 0.8 tho/cmm (0.8-4.5); MCH (MEAN CORPUSCULAR HGB) 32.1 pg (28.0-32.0); MCHC MEAN CORPUSCULAR HGB CONC 31.2 % (32.0-36.0); MCV (MEAN CELL VOLUME) 103.2 fl (82.0-96.0); MEAN PLATELET VOLUME 9.7 cmc (9.4-12.4); MONO % 14.5 % (0-12); MONOCYTE ABSOLUTE COUNT 1.2 tho/cmm (0.0-1.2); NEUTROPHIL ABSOLUTE COUNT 6.2 tho/cmm (1.6-8.0); NEUTROPHIL-AUTOMATED 6.2 tho/cmm (1.6-8.0); PLATELET COUNT 113 tho/cmm (150-450); RED BLOOD COUNT 2.52 mil/cmm (4.40-5.70); RED CELL DISTRIBUTION WIDTH 18.2 % (12.4-16.4); WHITE BLOOD COUNT 8.3 tho/cmm (4.0-10.0)
[2017-02-17 06:03] LABS: ANION GAP 11 mmol/L (0-20); BLOOD UREA NITROGEN 46 mg/dl (6-24); CALCIUM 8.2 mg/dl (8.5-10.5); CARBON DIOXIDE-VENOUS 29 mmol/L (22-32); CHLORIDE 103 mmol/l (96-110); GLUCOSE 90 mg/dL (70-110); POTASSIUM 3.8 mmol/L (3.7-5.1); SODIUM 139 mmol/L (135-145); eGFR VALUE FOR BLACK 62 mL/Min
[2017-02-17 06:14] LABS: CREATININE 1.31 mg/dl (0.60-1.30)
[2017-02-17] MEDS ORDERED: HYDROCORTISON28.411 TP (16:14)
[2017-02-17] MEDS ORDERED: CLOTRIMAZOLE15 G2 TP (16:14)
[2017-02-17] MEDS ORDERED: ALOE VESTA56 G1 TP (16:15)
[2017-02-17] MEDS ORDERED: CHLORASEPTIC SO2 LOZ MM (16:18)
[2017-02-18 05:14] LABS: HGB-HEMOGLOBIN 8.5 gm/dl (13.5-17.0); PLATELET COUNT 116 tho/cmm (150-450)
[2017-02-18 05:18] LABS: ANION GAP 11 mmol/L (0-20); BLOOD UREA NITROGEN 27 mg/dl (6-24); CALCIUM 8.3 mg/dl (8.5-10.5); CARBON DIOXIDE-VENOUS 30 mmol/L (22-32); CHLORIDE 103 mmol/l (96-110); CREATININE 1.07 mg/dl (0.60-1.30); GLUCOSE 93 mg/dL (70-110); POTASSIUM 3.9 mmol/L (3.7-5.1); SODIUM 140 mmol/L (135-145); eGFR VALUE FOR BLACK 79 mL/Min
[2017-02-18 14:43] LABS: ABG CO2 ARTERIAL 32 mmol/L (21-27); ARTERIAL BLD GAS O2 SATURATION 86 % (95-98); ARTERIAL BLOOD GAS PCO2 50 mmHg (32-45); ARTERIAL PO2 58 mmHg (70-100); BICARBONATE 30 mmol/L (21-28); BLOOD GAS BASE EXCESS 5 mM/L (-/+3)
[2017-02-19 05:28] LABS: ABG CO2 ARTERIAL 32 mmol/L (21-27); ARTERIAL BLD GAS O2 SATURATION 90 % (95-98); ARTERIAL BLOOD GAS PCO2 50 mmHg (32-45); ARTERIAL PO2 61 mmHg (70-100); BICARBONATE 31 mmol/L (21-28); BLOOD GAS BASE EXCESS 6 mM/L (-/+3); PH 7.41 Units (7.35-7.45)
[2017-02-20 06:00] LABS: HGB-HEMOGLOBIN 8.7 gm/dl (13.5-17.0); PLATELET COUNT 92 tho/cmm (150-450)
[2017-02-20 06:16] LABS: TSH-THYROID STIMULATING HORM. 7.6 uIU/ml (0.40-3.80)
[2017-02-20] MEDS ORDERED: STOP THE FOLLOWING (14:33)
[2017-02-27] MEDS ORDERED: LASIX40 M1 PO (10:59)
[2017-04-01] MEDS ORDERED: HYDROXYZINE HCL25 M1 PO (10:25)
[2017-04-01] MEDS ORDERED: TEGRETOL200 M1 PO (10:25)
[2017-04-01] MEDS ORDERED: DANTRIUM PO (10:26)
[2017-04-01] MEDS ORDERED: LOPRESSOR100 M1 PO (10:26)
[2017-04-01] MEDS ORDERED: MIRALAX17 G2 PO (10:26)
[2017-04-01] MEDS ORDERED: OS-CAL 500+D31 EAC1 PO (10:27)
[2017-04-01] MEDS ORDERED: METHADONE HCL10 M1 PO (10:27)
[2017-04-01] MEDS ORDERED: NASONEX17 G1 (10:27)
[2017-04-01] MEDS ORDERED: NEURONTIN400 M1 PO (10:27)
[2017-04-01] MEDS ORDERED: CARDURA8 M1 PO (10:28)
[2017-04-01] MEDS ORDERED: AMIODARONE HCL200 M1 PO (10:28)
[2017-04-01] MEDS ORDERED: LASIX80 M1 PO (10:28)
[2017-04-01] MEDS ORDERED: FEOSOL325 M1 PO (10:29)
[2017-04-01] MEDS ORDERED: DILTIAZEM 24HR180 M4 PO (10:29)
[2017-04-01] MEDS ORDERED: LAMISIL250 M1 PO (10:29)
[2017-04-01] MEDS ORDERED: VITAMIN E400 UNI4 PO (10:29)
[2017-04-01] MEDS ORDERED: ALDACTONE25 M1 PO (10:29)
[2017-04-01] MEDS ORDERED: COMPLETE MULTI1 EAC1 PO (10:30)
[2017-04-01] MEDS ORDERED: VITAMIN C500 M3 PO (10:30)
[2017-04-01] MEDS ORDERED: PROSCAR5 M1 PO (10:30)
[2017-04-01] MEDS ORDERED: TRAZODONE HCL100 M1 PO (10:30)
[2017-04-01] MEDS ORDERED: PRAVACHOL40 M1 PO (10:30)
[2017-04-01] MEDS ORDERED: XARELTO20 M1 PO (10:30)
[2017-04-01] MEDS ORDERED: NORCO 7.5-3251 EACH PO (10:31)
[2017-04-01] MEDS ORDERED: OMEPRAZOLE20 M3 PO (10:31)
[2017-04-01] MEDS ORDERED: REQUIP2 M1 PO (10:31)
[2017-04-01] MEDS ORDERED: XALATAN2.5 M1 OP (10:31)
[2017-04-01] MEDS ORDERED: ULTRAM50 M1 PO (10:32)
[2017-04-01] MEDS ORDERED: SYMBICORT 160-1 PUFF INH (10:32)
[2017-04-01] MEDS ORDERED: DULERA 200 MCG/13 G1 INH (10:32)
[2017-04-01] MEDS ORDERED: MAJOR-PREP HEMO57 G1 TOP (10:32)
[2017-04-01] MEDS ORDERED: MONISTAT 744 GM TOP (10:33)
[2017-04-01] MEDS ORDERED: HYDROCORTISON28.411 TOP (10:33)
[2017-04-01] MEDS ORDERED: PROAIR HFA8.5 GM INH (10:33)
[2017-04-01] MEDS ORDERED: IPRAT-ALBUT 0.5-3 ML NEB (10:34)
[2017-04-05] MEDS ORDERED: CORTEF10 M1 PO (13:31)
[2017-04-05] MEDS ORDERED: BACTRIM DS TAB1 EAC2 PO (13:32)
[2017-04-05] MEDS ORDERED: SULFAMYLON60 GM TOP (13:34)
[2017-04-05] MEDS ORDERED: SORE THROAT LO1 EAC3 MM (13:44)
[2017-04-05] MEDS ORDERED: CITRATE OF MAG300 M1 PO (13:45)
[2017-04-05] MEDS ORDERED: MILK OF MAGNESIA PO (13:45)
[2017-05-06] MEDS ORDERED: HYDROCODON-ACE1 EA16 PO (11:38)
[2017-05-06] MEDS ORDERED: METOLAZONE2.5 M1 PO (11:41)
[2017-05-06] MEDS ORDERED: VITAMIN E400 UNI7 PO (11:43)
[2017-05-06] MEDS ORDERED: LASIX80 M1 PO (11:45)
[2017-05-06] MEDS ORDERED: POTASSIUM CHLO20 ME3 PO (11:48)
[2017-05-06] MEDS ORDERED: PENTOXIFYLLINE400 M2 PO (11:57)
[2017-05-06] MEDS ORDERED: PRINIVIL5 M1 PO (12:10)
[2017-05-20] MEDS ORDERED: VITAMIN E400 UNI5 PO (11:23)
== END 2017-02-20 21:40 | DRG 871 ==
LOC: EDMED 15:18 → EMR2 19:09 → PCUB 21:05 → CCU 02-18 15:10 → 5WD 02-19 17:01
PROVIDERS: Emergency Medicine; Family Medicine; Internal Medicine Cardiovascular Disease; Internal Medicine Critical Care Medicine; ADMIT Hospitalist
PROC: 02HV33Z Insertion of Infusion Device into Superior Vena Cava, Percutaneous Approach (ICD-10-PCS; principal; 2017-02-18)
DX: A41.9 Sepsis, unspecified organism (principal); J96.01 Acute respiratory failure with hypoxia; I95.9 Hypotension, unspecified; N17.9 Acute kidney failure, unspecified; D64.9 Anemia, unspecified; I48.91 Unspecified atrial fibrillation; J44.9 Chronic obstructive pulmonary disease, unspecified; M06.9 Rheumatoid arthritis, unspecified; I10 Essential (primary) hypertension; E78.5 Hyperlipidemia, unspecified
CPT/HCPCS: C1751; J1650; J1720; J2270; J2405; J2543; J3370; J7030; J7050; Q9967